=== PATIENT | female | born 1930 | race African-American/Black ===

== ENCOUNTER 2017-09-19 08:41 | Outpatient (CLI) | payer MEDICARE, MEDICAID | END 2017-09-19 08:42 | disposition home or self-care (01) | LOC: BICULT 08:41 | PROVIDERS: ATTEND Nurse Practitioner Family | DX: R10.32 Left lower quadrant pain (principal); K76.0 Fatty (change of) liver, not elsewhere classified | CPT/HCPCS: 76700 ==

== ENCOUNTER 2018-01-03 13:45 | Emergency (ER) | payer MEDICARE, MEDICAID ==
[2018-01-03] MEDS ORDERED: Ketorolac Tromethamine 30 MG/ML VIAL ONE (14:34)
--- NOTE | 2018-01-03 15:13 | RAD ---
LEFT KNEE 4 VIEWS: Date: 01/03/18 HISTORY: 87-year-old female with history of left knee pain. 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 There is minimally increased densit y in the suprapatellar recess region, possibly some minimal joint fluid. No acute fracture or disloca tion. IMPRESSION: Possible small amount of suprapatellar joint fluid. Degenerative changes of all three compartments. N o fracture or dislocation. POS: [facility]
--- NOTE | 2018-01-03 15:29 | RAD ---
RIGHT HIP TWO VIEWS: INDICATIONS: Pain. FINDINGS: No evidence of discrete fracture. There is mild osteoarthritis. Degenerative hypertrophy is seen at the symphysis pubis. IMPRESSION: No discrete fracture of the right hip identified. POS: [facility]
--- NOTE | 2018-01-03 15:30 | RAD ---
FRONTAL VIEW PELVIS: Date: 01/03/18 INDICATION: Pain. COMPARISON: 03/30/16. FINDINGS: There is no evidence of an acute fracture. Degenerative hypertrophy at the symphysis pubis is again s een. There are bilateral phleboliths, similar appearing. Heterotopic densities adjacent to the bilate ral hip joints noted, similar appearing. There is vascular calcification. IMPRESSION: Stable appearance of the pelvis without acute fracture. POS: [facility]
== END 2018-01-03 15:20 | disposition home or self-care (01) ==
LOC: ERS 13:45
DX: M25.551 Pain in right hip (principal); M25.562 Pain in left knee; E03.9 Hypothyroidism, unspecified; E78.5 Hyperlipidemia, unspecified; I10 Essential (primary) hypertension; Z79.899 Other long term (current) drug therapy
CPT/HCPCS: 72170; 96372; J1885

== ENCOUNTER 2019-03-19 17:49 | Emergency (ER) | payer MEDICARE, MEDICAID ==
[2019-03-19 18:48] LABS: #Eosinphils 0.1 thou/uL (0.0-0.7); #Lymphocytes 1.3 thou/uL (1.20-3.40); #Monocytes 0.3 thou/uL (0.11-0.59); %Basophils 0.3 % (0.0-1.0); %Lymphocytes 27.3 % (21.0-51.0); %Monocytes 5.8 % (0.0-10.0); %Neutrophils 63.6 % (42.0-75.0); Hemoglobin 13.2 g/dL (12.0-16.0); Mean Corpuscular HGB CONC 32.7 g/dL (32.0-36.0); Mean Corpuscular Hemoglobin 30.3 pg (27.0-31.0); Mean Corpuscular Volume 92.7 fL (78.0-98.0); Mean Platelet Volume 8.4 fL (7.4-10.4); Platelet Count 209 thou/uL (130-400); RBC Distribution Width 12.8 % (11.5-14.5); Red Blood Cell (RBC) Count 4.36 mill/uL (4.20-5.40); White Blood Cell (WBC) Count 4.6 thou/uL (4.8-10.8)
[2019-03-19 19:10] LABS: ALT (SGPT) 42 U/L (8-55); AST (SGOT) 33 U/L (5-34); Albumin 4.4 g/dL (3.4-4.8); Alkaline Phosphatase 56 U/L (40-110); Anion Gap 14 mmol/L (10-20); BUN (Urea Nitrogen) 12 mg/dL (9.8-20.1); Bilirubin, Total 0.5 mg/dL (0.2-1.2); CK (CPK) 184 U/L (29-168); Calc. Creatinine Clearance 0 mL/min (70-130); Calcium 9.5 mg/dL (7.8-10.44); Carbon Dioxide 31 mmol/L (23-31); Chloride 102 mmol/L (98-107); Estimated GFR-MDRD 58; Globulin 2.9 g/dL (2.4-3.5); Glucose 116 mg/dL (83-110); Potassium 3.7 mmol/L (3.5-5.1); Protein, Total 7.3 g/dL (6.0-8.3); Sodium 143 mmol/L (136-145)
--- NOTE | 2019-03-19 19:54 | RAD ---
Portable frontal chest radiograph: 03/19/2019 COMPARISON: None HISTORY: Pain FINDINGS: Cardiac silhouette is prominent. There is atherosclerotic calcification aortic arch. Inspir ation is shallow. No focal consolidation or alveolar edema. IMPRESSION: No focal consolidation or alveolar edema.
--- NOTE | 2019-03-19 20:27 | RAD ---
LEFT KNEE FOUR VIEWS: 03/19/19 HISTORY: Pain. FINDINGS: There is severe medial compartment narrowing with osteophyte formation of the medial femoral condyle and medial tibial plateau. There is mild lateral compartment narrowing. There is no acute fracture o r dislocation. No significant knee joint effusion. There is posterior patellar osteophyte formation. IMPRESSION: No acute osseous abnormality. Degenerative joint disease as above. POS: [facility]
[2019-03-19 20:39] LABS: Bilirubin Negative (Negative); Blood, Urine Negative (Negative); Clarity Clear (Clear); Glucose, Urine (Dipstick) Normal (Negative); Leukocyte Negative Leu/uL (Negative); Nitrite Negative (Negative); Protein, Urine (Dipstick) Negative (Neg-Trace); Urobilinogen Normal mg/dL (Less than 2)
[2019-03-19] MEDS ORDERED: Ketorolac Tromethamine 30 MG/ML VIAL ONE (21:27)
== END 2019-03-19 21:35 | disposition home or self-care (01) ==
LOC: ERS 17:49
DX: J20.9 Acute bronchitis, unspecified (principal); M25.562 Pain in left knee; R10.32 Left lower quadrant pain; E78.5 Hyperlipidemia, unspecified; E78.00 Pure hypercholesterolemia, unspecified; I10 Essential (primary) hypertension; E03.9 Hypothyroidism, unspecified
CPT/HCPCS: 36415; 71045; 80053; 81003; 82550; 84484; 85025; 87086; 87804; 93005; 96372; J1885

== ENCOUNTER 2021-04-23 11:48 | Outpatient (CLI) | payer MEDICARE, MEDICAID ==
[2021-04-24 08:26] LABS: SARS-CoV-2 PCR by NAA Not Detected (NotDetected)
== END 2021-04-23 11:49 | disposition home or self-care (01) ==
LOC: LABBT 11:48
PROVIDERS: ATTEND Ophthalmology Retina Specialist
DX: Z01.812 Encounter for preprocedural laboratory examination (principal); T85.22XA Displacement of intraocular lens, initial encounter; Z20.822 Contact with and (suspected) exposure to COVID-19
CPT/HCPCS: U0003; U0005

== ENCOUNTER 2021-04-30 15:16 | Outpatient (CLI) | payer MEDICARE, MEDICAID ==
[2021-05-01 00:43] LABS: SARS-CoV-2 PCR by NAA Not Detected (NotDetected)
== END 2021-04-30 15:17 | disposition home or self-care (01) ==
LOC: LABBT 15:16
PROVIDERS: ATTEND Ophthalmology Retina Specialist
DX: Z01.812 Encounter for preprocedural laboratory examination (principal); T85.22XA Displacement of intraocular lens, initial encounter; Z20.822 Contact with and (suspected) exposure to COVID-19
CPT/HCPCS: U0003; U0005

== ENCOUNTER 2021-05-03 07:07 | Day surgery (SDC) | payer MEDICARE, MEDICAID ==
[2021-04-19 09:34] VITALS: BMI 34.9
[~2021-05-03 07:07] MED LIST: EPINEPHrine 0.3 MG in Ophthalmic Irrigation Solution 500 ML IRR SCH; Famotidine/PF 20 mg/2ml Vial ONE
[2021-05-03] MEDS ORDERED: Phenylephrine 2.5% Ophth Soln 5 ML BOT ONE (07:34)
[2021-05-03] MEDS ORDERED: Cyclopentolate 1% Opth Drop 2 ML BOT ONE (07:34)
[2021-05-03] MEDS ORDERED: Maxitrol 0.1% Opth Oint 3.5 GM TUBE ONE (09:00)
[2021-05-03] MEDS ORDERED: Bupivacaine PF 0.75% SDV 10 ML ONE (09:00)
[2021-05-03] MEDS ORDERED: Triamcinolone 40 MG/ML VIAL ONE (09:00)
[2021-05-03] MEDS ORDERED: Lidocaine 4% PF 5 ML AMP ONE (09:00)
[2021-05-03] MEDS ORDERED: Acetylcholine 20 MG/2 ML VIAL (OR CHARGE) ONE (09:00)
[2021-05-03] MEDS ORDERED: PROPOFOL 200 MG/20 ML VIAL ONE (09:00)
[2021-05-03] MEDS ORDERED: Succinylcholine 200 MG/10 ml SYRINGE FS ONE (09:00)
[2021-05-03] MEDS ORDERED: Lidocaine 1% PF 5 ML VIAL ONE ×2 (09:00)
[2021-05-03] MEDS ORDERED: Ondansetron PF 4 MG/2 ML Vial ONE (09:00)
[2021-05-03] MEDS ORDERED: CEFAZOLIN 1 GM VIAL ONE (09:00)
== END 2021-05-03 13:10 | disposition home or self-care (01) ==
LOC: SDC 07:07
PROVIDERS: ATTEND Ophthalmology Retina Specialist
PROC: 08T53ZZ Resection of Left Vitreous, Percutaneous Approach (ICD-10-PCS; principal; 2021-05-03)
DX: T85.22XA Displacement of intraocular lens, initial encounter (principal); Z79.890 Hormone replacement therapy; Z79.899 Other long term (current) drug therapy
CPT/HCPCS: J0171; J0690; J2405; J2704; J3301; J3490; S0028